=== PATIENT | female | born 1980 | race Hispanic/Latino ===

== ENCOUNTER 2018-08-20 21:11 | Emergency (ER) | payer MEDICAID, OTHER ==
[2018-08-20 21:21] VITALS: TEMP 99
[2018-08-20] MEDS ORDERED: Albuterol-Ipratrop 3 mg / 0.5 (3 ml) UD INH STA ×2 (21:57→22:35)
--- NOTE | 2018-08-20 22:00 | ED PDOC ---
HPI: SOB/CHF/COPD Time Seen by Provider: 08/20/18 21:53 Chief Complaint (Nursing): Respiratory Distress Chief Complaint (Provider): SOB History Per: Patient History/Exam Limitations: no limitations Additional Complaint(s): Pt reports SOB X 2 days, associated with dry cough, has been using nebulizer and MDI at home without relief. Denies fever, CP, sputum. Past Medical History Reviewed: Nursing Documentation, Vital Signs Vital Signs: Last Vital Signs Temp 99.0 F 08/20/18 21:16 Pulse 103 H 08/20/18 21:16 Resp 20 08/20/18 21:16 BP 152/78 H 08/20/18 21:16 Pulse Ox 95 08/20/18 21:16 - Medical History PMH: Asthma - Family History Family History: States: Unknown Family Hx - Living Arrangements Living Arrangements: With Friends/Others - Social History Current smoker - smoking cessation education provided: No - Allergies Allergies/Adverse Reactions: Allergies Allergy/AdvReac Type Severity Reaction Status Date / Time No Known Allergies Allergy Verified 08/20/18 21:20 Review of Systems Constitutional: Negative for: Fever, Chills Cardiovascular: Negative for: Chest Pain, Palpitations Respiratory: Positive for: Cough, Shortness of Breath, Wheezing. Negative for: Sputum Gastrointestinal: Negative for: Abdominal Pain Skin: Negative for: Rash, Lesions Psych: Positive for: Anxiety Physical Exam - Reviewed Nursing Documentation Reviewed: Yes Vital Signs Reviewed: Yes - Physical Exam Appears: Positive for: No Acute Distress (Speaking full sentences) Head Exam: Positive for: ATRAUMATIC, NORMAL INSPECTION Skin: Positive for: Normal Color, Warm, Dry Eye Exam: Positive for: Normal appearance, EOMI, PERRL Cardiovascular/Chest: Positive for: Regular Rate, Rhythm Respiratory: Positive for: Wheezing (Bilateral). Negative for: Rales, Rhonchi, Respiratory Distress Rectal: Positive for: Deferred Neurological/Psych: Positive for: Awake, Alert - Laboratory Results Result Diagrams: 08/20/18 20:15 - ECG O2 Sat by Pulse Oximetry: 95 Medical Decision Making Medical Decision Makin yo female with wheezing. - labs - EKG - CXR - Albuterol/atrovent nebs - Solumedrol 23:00 Patient care endorsed to Dr. Phelps pending labs and xray. Disposition - Clinical Impression Clinical Impression: Asthma exacerbation - Disposition Disposition: Transfer of Care Disposition Time: 23:00 Condition: STABLE Forms: [employer] (Iranian) Patient Signed Over To: Robel Phelps (pending labs and xray)
[2018-08-20] MEDS ORDERED: Albuterol-Ipratrop 3 mg / 0.5 (3 ml) UD ONE ×2 (22:14→23:07)
[2018-08-20 22:57] LABS: BASO # 0.1 K/uL (0.0-0.2); BASO % 1.2 % (0.0-2.0); EOS # 0.5 K/uL (0.0-0.7); EOS % 5.2 % (0.0-4.0); HEMOGLOBIN 15.8 g/dL (12.0-16.0); LYMPH # 2.4 K/uL (1.0-4.3); LYMPH % 26.4 % (20.0-40.0); MEAN CELL VOLUME 90.1 fl (81.0-99.0); MEAN CORPUSCULAR HEMOGLOBIN 29.9 pg (27.0-31.0); MEAN CORPUSCULAR HGB CONC 33.2 g/dL (33.0-37.0); MEAN PLATELET VOLUME 8.5 fl (7.2-11.7); MONO # 0.7 K/uL (0.0-0.8); MONO % 7.6 % (0.0-10.0); NEUT # 5.4 K/uL (1.8-7.0); NEUT % 59.6 % (50.0-75.0); RBC 5.28 Mil/uL (3.80-5.20); RED CELL DISTRIBUTION WIDTH 13.7 % (11.5-14.5)
[2018-08-20 23:11] LABS: ALB/GLOB RATIO 1.3 (1.0-2.1); ALBUMIN 5.2 g/dL (3.5-5.0); ALT/SGPT 28 U/L (9-52); AST/SGOT 37 U/L (14-36); BLOOD UREA NITROGEN 19 mg/dl (7-17); CALCIUM 10.4 mg/dL (8.4-10.2); GFR NON-AFRICAN AMERICAN 55
[2018-08-20] MEDS ORDERED: Sodium Chloride 0.9% 1,000 ML IV STA (23:13)
--- NOTE | 2018-08-20 23:19 | ED PDOC ---
- Laboratory Results Result Diagrams: 08/20/18 20:15 08/20/18 20:15 Lab Results: Total Bilirubin 0.5 mg/dl (0.2-1.3) 08/20/18 20:15 AST 37 U/L (14-36) H 08/20/18 20:15 ALT 28 U/L (9-52) 08/20/18 20:15 Alkaline Phosphatase 88 U/L (38-126) 08/20/18 20:15 Total Protein 9.1 G/DL (6.3-8.2) H 08/20/18 20:15 Albumin 5.2 g/dL (3.5-5.0) H 08/20/18 20:15 Globulin 4.0 gm/dL (2.2-3.9) H 08/20/18 20:15 Albumin/Globulin Ratio 1.3 (1.0-2.1) 08/20/18 20:15 - ECG O2 Sat by Pulse Oximetry: 95 (RA) Pulse Ox Interpretation: Normal Medical Decision Making Medical Decision Making: Time: 23:00 Patient care endorsed from Dr. Leroy to provider pending labs and x-ray. Time: 1:00 --Patient reports that she is feeling much better --Lungs are clear on re-examination --Patient believes her trigger may have been stress of anxiety, requesting referral to psychiatrist --Patient feels as though she cannot expectorate phlegm; guaifenasen presc ription given --Patient states she feels she's over-utilizing her albuterol, recommended control medication; advair prescription given --Patient speaking full sentences, stable vitals, very well appearing upon discharge Scribe Attestation: Documented by Ricardo Gordon, acting as a scribe for Robel Phelps MD Provider Scribe Attestation: All medical record entries made by the Scribe were at my direction and personally dictated by me. I have reviewed the chart and agree that the record accurately reflects my personal performance of the history, physical exam, medical decision making, and the department course for this patient. I have also personally directed, reviewed, and agree with the discharge instructions and disposition. Disposition - Clinical Impression Clinical Impression: Asthma exacerbation - POA Present On Arrival: None - Disposition Referrals: Shaik Dunbar MD [Family Provider] - Arik Connors MD [Medical Doctor] - Disposition: Routine/Home Disposition Time: 01:00 Condition: IMPROVED Prescriptions: Fluticasone/Salmeterol [Advair 250-50 Diskus] 1 each IH DAILY #1 blst.w.dev Guaifenesin [Mucinex] 600 mg PO DAILY #20 tab.er.12h predniSONE [predniSONE Tab] 60 mg PO DAILY #9 tab Instructions: Asthma in Adults, Inhaled Corticosteroid Medicines Forms: [employer] (Korean)
[2018-08-21 01:01] VITALS: BP 124/76; PULSE 87; RESP 17
[2018-08-21 02:55] VITALS: O2SAT 95
--- NOTE | 2018-08-21 07:55 | RAD ---
Date of service: 08/20/2018 HISTORY: SOB COMPARISON: 09/10/2012 TECHNIQUE: Chest PA and lateral FINDINGS: LUNGS: Interval vague small opacity at left lung base noted. Bilateral hyperaeration background COPD/emphysema inferred. PLEURA: No significant pleural effusion identified. No pneumothorax apparent. CARDIOVASCULAR: No aortic atherosclerotic calcification present. Normal cardiac size. No pulmonary vascular congestion. OSSEOUS STRUCTURES: No significant abnormalities. VISUALIZED UPPER ABDOMEN: Normal. OTHER FINDINGS: None. IMPRESSION: Interval vague small patchy opacity at the left lung base-a small patchy interval infiltrate is 1 consideration. Summation of soft tissues is another. Clinical follow-up and correlation recommended. Background COPD/emphysema inferred. Comments: Study marked for PA review .
== END 2018-08-21 01:14 | disposition home or self-care (01) ==
LOC: H.ER 21:11
DX: J45.901 Unspecified asthma with (acute) exacerbation (principal)
CPT/HCPCS: 71046; 80053; 81025; 85025; 94640; 96361; 96374; 99283; J2930; J7030